=== PATIENT | male | born 1980 | race Caucasian/White ===

== ENCOUNTER 2020-12-01 02:25 | Inpatient (IN) | payer BC ==
[~2020-12-01] VITALS: Ht 177.8 cm; Wt 91.0 kg
--- NOTE | 2020-12-01 02:25 | NUR ---
INITIAL PT CONTACT. PT PRESENTS TO ED A TRANSFER FROM [facility] IN [facility] FOR LOWER BACK PAIN/POST OP COMPLICATION, PT RECENTLY HAD A LAMINECTOMY ON 11/14. PT STATES HE HAS BEEN EXPERIENCING INCREASED PAIN AND DRAINAGE FROM INCISION SITE. "THE SITE FEELS LIKE A SOFTBALL, AND IT'S WARM AND HURTS". PT WAS GIVEN 12.5 PHENERGAN, 4MG DILAUDID, 2G VANCO, 2G ROCEPHIN, 200FENTANYL, 4MG ZOFRAN, 2L NS. PT TRANSFERED FROM EMS [facility] TO ED [facility], TOLERATED WELL. PLACED ON CONTINUOUS MONITORING IN PLACE. PT REQUESTING ADDITIONAL PAIN MEDS AT THIS TIME. ERP AT BEDSIDE.
--- NOTE | 2020-12-01 02:38 | NUR ---
PT AMBULATORY WITH STEADY GAIT WITH USE OF CANE TO BATHROOM. PT REFUSES USE OF WHEELCHAIR AT THIS TIME. PT RETURNED TO ROOM. NEW OPTIFOAM DRESSING PLACED ON WOUND. PT DENIES ANY ADDITIONAL NEEDS AT THIS TIME. CALL LIGHT AND BELONGINGS WITHIN REACH.
[2020-12-01] MEDS ORDERED: ONDANSETRON 2MG/ML, 2ML ONE (02:48)
[2020-12-01] MEDS ORDERED: HYDROmorphone 1 MG/ML, 1ML INJ ONE (02:48)
[2020-12-01] MEDS ORDERED: PLEASE ENTER ALLERGIES MC SCH (03:00)
[2020-12-01] MEDS ORDERED: SODIUM CHLORIDE FLUSH 10ML SYR IVF ONE (03:00)
[2020-12-01] MEDS ORDERED: SODIUM CHLORIDE 0.9% 1,000 ML IV ONE (03:00)
[2020-12-01] MEDS ORDERED: ONDANSETRON 2MG/ML, 2ML IVPush ONE (03:00)
[2020-12-01] MEDS ORDERED: MORPHINE SULFATE 4 MG/ML, 1ML IVPush PRN (03:00)
[2020-12-01] MEDS ORDERED: HYDROmorphone 1 MG/ML, 1ML INJ IV ONE (03:00)
[2020-12-01] MEDS ORDERED: NALOXONE 0.4 MG/ML, 1ML ONE (03:19)
[2020-12-01] MEDS ORDERED: NALOXONE 0.4 MG/ML, 1ML IVPush PRN (03:30)
--- NOTE | 2020-12-01 03:45 | NUR ---
Pt o2 down to 2L NC, pt remains NPO.
--- NOTE | 2020-12-01 03:56 | NUR ---
Pt to be admitted to MEDICAL/SURGICAL, room 336. Report called to MEGHAN.
[2020-12-01] MEDS ORDERED: CELE200C PO (03:59)
[2020-12-01] MEDS ORDERED: METH750T87 PO (03:59)
[2020-12-01] MEDS ORDERED: METH10TA2 PO (03:59)
[2020-12-01] MEDS ORDERED: OXYC10TA6 PO (03:59)
[2020-12-01] MEDS ORDERED: LACTATED RINGERS 1,000 ML IV SCH (04:30)
[2020-12-01] MEDS: morphine SULFATE 10 MG/ML, 1ML IVPush PRN ×5 (04:59→20:25)
[2020-12-01 06:47] LABS: BASOPHILS % (AUTO) 1 % (0-1); EOSINOPHILS % (AUTO) 1 % (1-7); LYMPHOCYTES % (AUTO) 11 % (22-44); MEAN CORPUSCULAR HEMOGLOBIN 30.2 pg (27.5-34.5); MEAN CORPUSCULAR HGB CONC 33.6 g/dL (33.2-36.2); MEAN PLATELET VOLUME 7.8 fL (7.4-10.4); MONOCYTES % (AUTO) 9 % (2-9); NEUTROPHILS % (AUTO) 78 % (42-75); PLATELET COUNT 386 x10^3/uL (130-400); RED BLOOD COUNT 4.46 x10^6/uL (4.38-5.82); RED CELL DISTRIBUTION WIDTH 14.6 % (9.4-14.8)
[2020-12-01 06:54] LABS: ALANINE AMINOTRANSFERASE 27 U/L (12-78); ALBUMIN 3.4 g/dL (3.4-5.0); ANION GAP 7 mmol/L (5-15); CALCIUM 8.8 mg/dL (8.5-10.1); CHLORIDE 109 mmol/L (98-107); CREATININE 0.88 mg/dL (0.7-1.3)
[2020-12-01 06:56] LABS: ALKALINE PHOSPHATASE 76 U/L (45-117); BILIRUBIN,TOTAL 0.6 mg/dL (0.2-1.0); TOTAL PROTEIN 7.4 g/dL (6.4-8.2)
[2020-12-01] MEDS ORDERED: PHARMACOKINETIC CONSULTATION MC ONE (07:00)
[2020-12-01] MEDS ORDERED: VANCOMYCIN PER PHARMACY MC PRN (07:00)
[2020-12-01] MEDS ORDERED: PHARMACOKINETIC MONITORING MC PRN (07:00)
[2020-12-01 07:01] VITALS: BP 144/79
[2020-12-01 07:05] LABS: HCT (SEDRATE) 40.1 % (39.2-51.8)
[2020-12-01 07:15] LABS: MD SCAN
[2020-12-01] MEDS ORDERED: VANCOMYCIN 2,000 MG in SODIUM CHLORIDE 0.9% 500 ML IV ONE (07:30)
[2020-12-01 07:40] LABS: C-REACTIVE PROTEIN, QUANT > 19.00 mg/dL (0.02-0.49)
[2020-12-01] MEDS: PIPERACILLIN/TAZO/PMX 3.375GM 50 ML IV SCH ×2 (07:56→14:04)
[2020-12-01] MEDS ORDERED: METHOCARBAMOL 750 MG TABLET PO SCH (09:00)
[2020-12-01] MEDS ORDERED: METHADONE 10 MG TABLET PO SCH (09:00)
[2020-12-01] MEDS ORDERED: KETOROLAC 30 MG/1 ML IVPush ONE (11:00)
[2020-12-01] MEDS ORDERED: GADOTERATE 10 MMOL/20ML SYR ONE (13:38)
[2020-12-01] MEDS: ACETAMINOPHEN 325 MG TABLET PO PRN (14:13)
[2020-12-01 14:18] VITALS: BP 119/74
[2020-12-01] MEDS: VANCOMYCIN 1,700 MG in SODIUM CHLORIDE 0.9% 250 ML IV SCH (15:45)
[2020-12-01] MEDS: CEFEPIME 2 GM in DEXTROSE 5% 100 ML IV SCH (18:00)
[2020-12-01 18:32] VITALS: BP 106/69
[2020-12-01] MEDS: METHADONE 10 MG TABLET PO SCH (20:23)
[2020-12-01] MEDS ORDERED: NICOTINE 14MG/24 HR PATCH.TD24 TD SCH (21:00)
[2020-12-01] MEDS: METHOCARBAMOL 750 MG TABLET PO PRN (21:37)
[2020-12-01] MEDS: NICOTINE 14MG/24 HR PATCH.TD24 TD SCH (21:37)
[2020-12-02 00:23] VITALS: BP 137/81
[2020-12-02] MEDS: VANCOMYCIN 1,700 MG in SODIUM CHLORIDE 0.9% 250 ML IV SCH ×2 (00:52→09:24)
[2020-12-02] MEDS: morphine SULFATE 10 MG/ML, 1ML IVPush PRN ×7 (00:53→23:01)
[2020-12-02] MEDS: ACETAMINOPHEN 325 MG TABLET PO PRN (01:30)
[2020-12-02] MEDS ORDERED: KETOROLAC 30 MG/1 ML IVPush ONE (02:00)
[2020-12-02] MEDS: CEFEPIME 2 GM in DEXTROSE 5% 100 ML IV SCH ×3 (03:31→19:59)
[2020-12-02 07:09] VITALS: BP 154/92
[2020-12-02] MEDS: METHADONE 10 MG TABLET PO SCH ×3 (08:23→20:00)
[2020-12-02] MEDS: METHOCARBAMOL 750 MG TABLET PO PRN ×2 (09:33→19:59)
[2020-12-02] MEDS ORDERED: ONDANSETRON 2MG/ML, 2ML IVPush PRN (10:30)
[2020-12-02] MEDS ORDERED: KETOROLAC 30 MG/1 ML IVPush PRN (10:30)
[2020-12-02] MEDS: ONDANSETRON ODT 4 MG PO PRN (11:00)
[2020-12-02 11:27] LABS: ANION GAP 9 mmol/L (5-15); CALCIUM 8.7 mg/dL (8.5-10.1); CHLORIDE 108 mmol/L (98-107)
[2020-12-02 11:30] LABS: BASOPHILS % (AUTO) 1 % (0-1); EOSINOPHILS % (AUTO) 1 % (1-7); LYMPHOCYTES % (AUTO) 16 % (22-44); MEAN CORPUSCULAR HEMOGLOBIN 29.8 pg (27.5-34.5); MEAN CORPUSCULAR HGB CONC 32.6 g/dL (33.2-36.2); MEAN PLATELET VOLUME 7.8 fL (7.4-10.4); MONOCYTES % (AUTO) 9 % (2-9); NEUTROPHILS % (AUTO) 73 % (42-75); PLATELET COUNT 351 x10^3/uL (130-400); RED BLOOD COUNT 4.22 x10^6/uL (4.38-5.82); RED CELL DISTRIBUTION WIDTH 14.6 % (9.4-14.8)
[2020-12-02 12:08] LABS: MD SCAN
[2020-12-02 12:12] VITALS: BP 131/70
[2020-12-02] MEDS: LACTOBACILLUS CHEW TABLET PO SCH ×2 (16:31→20:00)
[2020-12-02 18:51] VITALS: BP 148/84
[2020-12-02] MEDS: VANCOMYCIN 2,000 MG in SODIUM CHLORIDE 0.9% 500 ML IV SCH (22:34)
[2020-12-02] MEDS: NICOTINE 14MG/24 HR PATCH.TD24 TD SCH (22:57)
[2020-12-03 00:14] VITALS: BP 134/80
[2020-12-03] MEDS: morphine SULFATE 10 MG/ML, 1ML IVPush PRN ×3 (02:02→08:46)
[2020-12-03] MEDS: CEFEPIME 2 GM in DEXTROSE 5% 100 ML IV SCH ×3 (04:17→21:52)
[2020-12-03 05:52] LABS: BASOPHILS % (AUTO) 1 % (0-1); EOSINOPHILS % (AUTO) 4 % (1-7); LYMPHOCYTES % (AUTO) 19 % (22-44); MEAN CORPUSCULAR HEMOGLOBIN 30.3 pg (27.5-34.5); MEAN CORPUSCULAR HGB CONC 33.7 g/dL (33.2-36.2); MEAN PLATELET VOLUME 7.6 fL (7.4-10.4); MONOCYTES % (AUTO) 10 % (2-9); NEUTROPHILS % (AUTO) 66 % (42-75); PLATELET COUNT 403 x10^3/uL (130-400); RED BLOOD COUNT 4.11 x10^6/uL (4.38-5.82); RED CELL DISTRIBUTION WIDTH 13.9 % (9.4-14.8)
[2020-12-03 05:53] LABS: MD NO
[2020-12-03 06:03] LABS: ALANINE AMINOTRANSFERASE 33 U/L (12-78); ANION GAP 5 mmol/L (5-15); CALCIUM 8.8 mg/dL (8.5-10.1); CHLORIDE 108 mmol/L (98-107)
[2020-12-03 06:05] LABS: ALKALINE PHOSPHATASE 71 U/L (45-117); BILIRUBIN,TOTAL 0.5 mg/dL (0.2-1.0); CREATININE 0.64 mg/dL (0.7-1.3); TOTAL PROTEIN 6.6 g/dL (6.4-8.2)
[2020-12-03] MEDS ORDERED: EPINEPHRINE 1 MG/ML, 1ML ONE (06:35)
[2020-12-03] MEDS ORDERED: BUPIVACAINE/PF 0.5% ONE (06:35)
[2020-12-03] MEDS ORDERED: VANCOMYCIN 1,000 MG ONE (06:35)
[2020-12-03] MEDS ORDERED: BACITRACIN 50,000 UNIT ONE (06:36)
[2020-12-03] MEDS ORDERED: POTASSIUM CHLORIDE 20 MEQ TAB.ER.PRT PO ONE (07:00)
[2020-12-03 07:06] VITALS: BP 157/88
[2020-12-03] MEDS: METHADONE 10 MG TABLET PO SCH ×2 (08:47→21:51)
[2020-12-03] MEDS: LACTOBACILLUS CHEW TABLET PO SCH ×3 (08:47→21:51)
[2020-12-03] MEDS: ONDANSETRON ODT 4 MG PO PRN (08:47)
[2020-12-03] MEDS: VANCOMYCIN 2,000 MG in SODIUM CHLORIDE 0.9% 500 ML IV SCH (09:31)
[2020-12-03] MEDS ORDERED: HYDROmorphone 1 MG/ML, 1ML INJ IM PRN (10:00)
[2020-12-03] MEDS ORDERED: POTASSIUM CHLORIDE IV SCH (10:00)
[2020-12-03] MEDS ORDERED: SODIUM CHLORIDE 0.45% IV SCH (10:00)
[2020-12-03] MEDS: HYDROmorphone 1 MG/ML, 1ML INJ IVPush PRN ×2 (11:05→16:08)
[2020-12-03 12:25] VITALS: BP 172/99
[2020-12-03] MEDS ORDERED: HYDROmorphone 1 MG/ML, 1ML INJ IVPush PRN (14:00)
[2020-12-03] MEDS ORDERED: CHLORHEXIDINE 15 ML UDC PO ONE (15:00)
[2020-12-03] MEDS ORDERED: FENTANYL PF 250 MCG/5ML ONE (15:19)
[2020-12-03] MEDS ORDERED: MIDAZOLAM 1 MG/ML, 2ML ONE (15:19)
[2020-12-03] MEDS ORDERED: LIDOCAINE-MPF 1%, 2ML ONE (15:40)
[2020-12-03] MEDS ORDERED: HYDROmorphone 1 MG/ML, 1ML INJ ONE (15:44)
[2020-12-03] MEDS ORDERED: LIDOCAINE-MPF 1%, 2ML INFIL ONE (16:00)
[2020-12-03] MEDS ORDERED: DEXAMETHASONE 4 MG/ML, 1ML ONE (16:31)
[2020-12-03] MEDS ORDERED: ONDANSETRON 2MG/ML, 2ML ONE (16:31)
[2020-12-03] MEDS ORDERED: PROPOFOL 10 MG/ML, 20ML ONE (16:31)
[2020-12-03] MEDS ORDERED: ROCURONIUM 10 MG/ML,10ML ONE (16:31)
[2020-12-03] MEDS ORDERED: CEFAZOLIN 1,000 MG ONE (16:31)
[2020-12-03] MEDS ORDERED: SUCCINYLCHOLINE 20 MG/ML, 10ML ONE (16:31)
[2020-12-03] MEDS ORDERED: SUGAMMADEX 200 MG/2 ML IVPush ONE (16:31)
[2020-12-03] MEDS ORDERED: METOCLOPRAMIDE 5 MG/ML, 2ML IV PRN (17:00)
[2020-12-03] MEDS ORDERED: PROMETHAZINE 25 MG/ML, 1ML IV PRN (17:00)
[2020-12-03] MEDS ORDERED: KETOROLAC 30 MG/1 ML IV PRN (17:00)
[2020-12-03] MEDS ORDERED: ONDANSETRON 2MG/ML, 2ML IVPush PRN ×2 (17:00→18:00)
[2020-12-03] MEDS ORDERED: DIAZEPAM 5 MG/ML, 2ML IV PRN ×2 (17:00)
[2020-12-03] MEDS ORDERED: ALBUTEROL SULFATE 2.5 MG/3 ML NPPB PRN (17:00)
[2020-12-03] MEDS ORDERED: LABETALOL 5MG/ML, 20ML IV PRN (17:00)
[2020-12-03] MEDS ORDERED: hydrALAzine 20 MG/ML, 1ML IV PRN (17:00)
[2020-12-03] MEDS ORDERED: OXYcodone 5 MG/5 ML ORAL.SOL UDC PO PRN (17:00)
[2020-12-03] MEDS ORDERED: FENTANYL PF 100 MCG/2ML ONE ×3 (17:25→17:59)
[2020-12-03] MEDS ORDERED: DIAZEPAM 5 MG/ML, 2ML ONE (17:26)
[2020-12-03] MEDS ORDERED: HYDROmorphone 2 MG/ML, 1ML ONE ×2 (17:26→17:59)
[2020-12-03] MEDS ORDERED: OXYcodone 5 MG/5 ML ORAL.SOL UDC ONE (17:26)
[2020-12-03] MEDS: FENTANYL PF 100 MCG/2ML IV PRN ×3 (17:27→17:46)
[2020-12-03] MEDS ORDERED: KETAMINE 10 MG/ML, 20ML ONE (17:28)
[2020-12-03] MEDS: HYDROmorphone 1 MG/ML, 1ML INJ IV PRN ×7 (17:30→18:10)
[2020-12-03] MEDS ORDERED: MEPERIDINE/PF 100 MG/ML ONE (17:51)
[2020-12-03] MEDS ORDERED: PROMETHAZINE 25 MG/ML, 1ML ONE (17:59)
[2020-12-03] MEDS ORDERED: SENNA/DOCUSATE TABLET PO PRN (18:00)
[2020-12-03] MEDS ORDERED: BISACODYL 10 MG SUPP PR PRN (18:00)
[2020-12-03] MEDS ORDERED: PHARMACY MAY ADJ FOR RENAL FX MC PRN (18:00)
[2020-12-03] MEDS ORDERED: MAGNESIUM HYDROXIDE 8%, 30ML UDC PO PRN (18:00)
[2020-12-03] MEDS ORDERED: DIPHENHYDRAMINE 50 MG/ML, 1ML IVPush PRN (18:00)
[2020-12-03] MEDS ORDERED: DIPHENHYDRAMINE 50 MG CAPSULE PO PRN (18:00)
[2020-12-03] MEDS: CEFAZOLIN PMX 1GM/50ML 50 ML IVPB SCH (18:00)
[2020-12-03] MEDS ORDERED: LABETALOL 5MG/ML 40ML VIAL IVPush SCH (18:00)
[2020-12-03] MEDS ORDERED: DIPHENHYDRAMINE 50 MG/ML, 1ML IM PRN (18:00)
[2020-12-03] MEDS ORDERED: METHOCARBAMOL 1,000 MG in DEXTROSE 5% 100 ML IV ONE (18:00)
[2020-12-03] MEDS: MEPERIDINE/PF 25MG/0.5ML IVPush PRN ×2 (18:07→18:22)
[2020-12-03] MEDS: HYDROmorphone PCA 30 MG/30 ML IV PRN (18:39)
[2020-12-03] MEDS ORDERED: DIAZEPAM 5 MG/ML, 2ML IV ONE (19:00)
[2020-12-03 19:52] VITALS: BP 144/86
[2020-12-03] MEDS: KETOROLAC 30 MG/1 ML IVPush SCH (20:05)
[2020-12-03] MEDS: LABETALOL 5MG/ML, 20ML IVPush SCH (20:15)
[2020-12-03] MEDS: NS + 20MEQ KCL 1,000 ML IV SCH (20:19)
[2020-12-03] MEDS: SODIUM CHLORIDE FLUSH 10ML SYR IVF SCH (21:51)
[2020-12-03] MEDS: NICOTINE 14MG/24 HR PATCH.TD24 TD SCH (21:51)
[2020-12-04] MEDS: VANCOMYCIN 2,000 MG in SODIUM CHLORIDE 0.9% 500 ML IV SCH ×2 (00:25→13:01)
[2020-12-04 00:39] VITALS: BP 160/93
[2020-12-04] MEDS ORDERED: METHOCARBAMOL 750 MG in DEXTROSE 5% 100 ML IV PRN (02:00)
[2020-12-04] MEDS: CEFAZOLIN PMX 1GM/50ML 50 ML IVPB SCH (03:04)
[2020-12-04] MEDS: KETOROLAC 30 MG/1 ML IVPush SCH ×3 (03:04→17:04)
[2020-12-04] MEDS: METHOCARBAMOL 750 MG TABLET PO PRN ×4 (03:05→23:25)
[2020-12-04] MEDS: HYDROmorphone PCA 30 MG/30 ML IV PRN (03:15)
[2020-12-04 03:40] VITALS: BP 114/65
[2020-12-04] MEDS: LABETALOL 5MG/ML, 20ML IVPush SCH (04:09)
[2020-12-04 05:19] LABS: BASOPHILS % (AUTO) 1 % (0-1); EOSINOPHILS % (AUTO) 3 % (1-7); LYMPHOCYTES % (AUTO) 18 % (22-44); MEAN CORPUSCULAR HEMOGLOBIN 29.7 pg (27.5-34.5); MEAN CORPUSCULAR HGB CONC 32.8 g/dL (33.2-36.2); MEAN PLATELET VOLUME 7.7 fL (7.4-10.4); MONOCYTES % (AUTO) 7 % (2-9); NEUTROPHILS % (AUTO) 72 % (42-75); PLATELET COUNT 402 x10^3/uL (130-400); RED BLOOD COUNT 3.95 x10^6/uL (4.38-5.82); RED CELL DISTRIBUTION WIDTH 14.2 % (9.4-14.8)
[2020-12-04 05:26] LABS: ALBUMIN 2.6 g/dL (3.4-5.0); CALCIUM 8.5 mg/dL (8.5-10.1); CREATININE 0.61 mg/dL (0.7-1.3)
[2020-12-04 05:48] LABS: ANION GAP 9 mmol/L (5-15); CHLORIDE 109 mmol/L (98-107)
[2020-12-04 06:00] LABS: MD SCAN
[2020-12-04] MEDS: CEFEPIME 2 GM in DEXTROSE 5% 100 ML IV SCH ×2 (06:23→15:46)
[2020-12-04] MEDS: NS + 20MEQ KCL 1,000 ML IV SCH (06:30)
[2020-12-04] MEDS: ENOXAPARIN 40 MG/0.4 ML SQ SCH (06:31)
[2020-12-04 07:05] VITALS: BP 146/97
[2020-12-04] MEDS: METHADONE 10 MG TABLET PO SCH ×2 (08:32→22:04)
[2020-12-04] MEDS: LACTOBACILLUS CHEW TABLET PO SCH ×3 (08:32→22:03)
[2020-12-04] MEDS: SODIUM CHLORIDE FLUSH 10ML SYR IVF SCH ×2 (08:32→22:05)
[2020-12-04] MEDS: HYDROmorphone 2MG TABLET PO PRN ×5 (11:18→23:25)
[2020-12-04] MEDS ORDERED: POTASSIUM CHLORIDE 20 MEQ TAB.ER.PRT PO ONE (13:00)
[2020-12-04] MEDS: ACETAMINOPHEN 325 MG TABLET PO PRN ×2 (14:10→20:21)
[2020-12-04 14:30] VITALS: BP 155/90
[2020-12-04] MEDS: HYDROmorphone 1 MG/ML, 1ML INJ IVPush PRN (15:46)
[2020-12-04 19:18] VITALS: BP 159/91
[2020-12-04] MEDS: NAFCILLIN 2 GM in DEXTROSE 5% 100 ML IV SCH ×2 (19:53→23:25)
[2020-12-04] MEDS: NICOTINE 14MG/24 HR PATCH.TD24 TD SCH (22:04)
[2020-12-05 01:43] VITALS: BP 157/95
[2020-12-05] MEDS: KETOROLAC 30 MG/1 ML IVPush SCH ×3 (02:06→17:28)
[2020-12-05] MEDS: HYDROmorphone 2MG TABLET PO PRN ×2 (02:28→05:51)
[2020-12-05] MEDS: NAFCILLIN 2 GM in DEXTROSE 5% 100 ML IV SCH ×5 (03:44→20:09)
[2020-12-05 05:39] LABS: BASOPHILS % (AUTO) 1 % (0-1); EOSINOPHILS % (AUTO) 6 % (1-7); LYMPHOCYTES % (AUTO) 22 % (22-44); MEAN CORPUSCULAR HEMOGLOBIN 30.2 pg (27.5-34.5); MEAN CORPUSCULAR HGB CONC 33.2 g/dL (33.2-36.2); MEAN PLATELET VOLUME 7.3 fL (7.4-10.4); MONOCYTES % (AUTO) 10 % (2-9); NEUTROPHILS % (AUTO) 62 % (42-75); PLATELET COUNT 468 x10^3/uL (130-400); RED BLOOD COUNT 4.44 x10^6/uL (4.38-5.82); RED CELL DISTRIBUTION WIDTH 14.2 % (9.4-14.8)
[2020-12-05 05:46] LABS: MD NO
[2020-12-05 05:48] LABS: ALBUMIN 3.3 g/dL (3.4-5.0); ANION GAP 4 mmol/L (5-15); CALCIUM 8.9 mg/dL (8.5-10.1); CHLORIDE 105 mmol/L (98-107)
[2020-12-05 05:51] LABS: ALANINE AMINOTRANSFERASE 33 U/L (12-78); ALKALINE PHOSPHATASE 73 U/L (45-117); BILIRUBIN,TOTAL 0.9 mg/dL (0.2-1.0); CREATININE 0.78 mg/dL (0.7-1.3); TOTAL PROTEIN 7.1 g/dL (6.4-8.2)
[2020-12-05] MEDS: ENOXAPARIN 40 MG/0.4 ML SQ SCH (05:52)
[2020-12-05] MEDS: METHOCARBAMOL 750 MG TABLET PO PRN ×3 (05:56→17:27)
[2020-12-05 07:00] VITALS: BP 152/90
[2020-12-05] MEDS: LACTOBACILLUS CHEW TABLET PO SCH ×3 (08:09→21:00)
[2020-12-05] MEDS: METHADONE 10 MG TABLET PO SCH ×2 (08:13→21:00)
[2020-12-05] MEDS: SODIUM CHLORIDE FLUSH 10ML SYR IVF SCH ×2 (08:16→20:17)
[2020-12-05] MEDS: DAPTOMYCIN 700 MG in SODIUM CHLORIDE 0.9% 100 ML IV SCH (09:41)
[2020-12-05] MEDS: OXYcodone IR 5MG TABLET PO PRN ×3 (09:41→17:27)
[2020-12-05] MEDS: LORazepam 1MG TABLET PO PRN ×2 (12:04→20:09)
[2020-12-05] MEDS ORDERED: NICOTINE GUM 2 MG BC PRN (12:30)
[2020-12-05] MEDS: NICOTINE GUM 4 MG BC PRN ×3 (12:59→19:41)
[2020-12-05] MEDS: ACETAMINOPHEN 325 MG TABLET PO PRN (13:28)
[2020-12-05 13:42] VITALS: BP 146/96
[2020-12-05 20:36] VITALS: BP 130/83
[2020-12-06] MEDS: NAFCILLIN 2 GM in DEXTROSE 5% 100 ML IV SCH ×3 (00:02→08:30)
[2020-12-06] MEDS: OXYcodone IR 5MG TABLET PO PRN ×6 (00:19→21:10)
[2020-12-06 03:05] VITALS: BP 157/86
[2020-12-06] MEDS: KETOROLAC 30 MG/1 ML IVPush SCH ×3 (03:37→17:00)
[2020-12-06] MEDS: ENOXAPARIN 40 MG/0.4 ML SQ SCH (06:11)
[2020-12-06 06:26] LABS: BASOPHILS % (AUTO) 1 % (0-1); EOSINOPHILS % (AUTO) 3 % (1-7); LYMPHOCYTES % (AUTO) 14 % (22-44); MEAN CORPUSCULAR HEMOGLOBIN 30.2 pg (27.5-34.5); MEAN CORPUSCULAR HGB CONC 33.2 g/dL (33.2-36.2); MEAN PLATELET VOLUME 7.2 fL (7.4-10.4); MONOCYTES % (AUTO) 8 % (2-9); NEUTROPHILS % (AUTO) 74 % (42-75); PLATELET COUNT 541 x10^3/uL (130-400); RED BLOOD COUNT 4.74 x10^6/uL (4.38-5.82); RED CELL DISTRIBUTION WIDTH 14.2 % (9.4-14.8)
[2020-12-06 06:28] LABS: MD NO
[2020-12-06] MEDS: METHOCARBAMOL 750 MG TABLET PO PRN ×3 (08:30→21:27)
[2020-12-06] MEDS: LACTOBACILLUS CHEW TABLET PO SCH ×3 (08:30→21:11)
[2020-12-06] MEDS: METHADONE 10 MG TABLET PO SCH ×2 (08:31→21:11)
[2020-12-06] MEDS: SODIUM CHLORIDE FLUSH 10ML SYR IVF SCH ×2 (08:36→21:15)
[2020-12-06] MEDS: DAPTOMYCIN 700 MG in SODIUM CHLORIDE 0.9% 100 ML IV SCH (10:00)
[2020-12-06] MEDS: HYDROmorphone 1 MG/ML, 1ML INJ IVPush PRN ×2 (10:00→15:05)
[2020-12-06 10:50] VITALS: BP 135/84
[2020-12-06] MEDS ORDERED: POTASSIUM CHLORIDE 20 MEQ TAB.ER.PRT PO ONE (13:30)
[2020-12-06 15:28] VITALS: BP 157/105
[2020-12-06 19:43] VITALS: BP 107/69
[2020-12-06] MEDS: NICOTINE 14MG/24 HR PATCH.TD24 TD SCH ×2 (21:11)
[2020-12-07 00:09] VITALS: BP 157/107
[2020-12-07] MEDS: HYDROmorphone 1 MG/ML, 1ML INJ IVPush PRN ×4 (00:21→21:53)
[2020-12-07 01:15] VITALS: BP 146/91
[2020-12-07] MEDS: KETOROLAC 30 MG/1 ML IVPush SCH ×3 (02:24→17:52)
[2020-12-07] MEDS: OXYcodone IR 5MG TABLET PO PRN ×5 (03:06→19:50)
[2020-12-07] MEDS: ENOXAPARIN 40 MG/0.4 ML SQ SCH (05:59)
[2020-12-07 06:13] LABS: BASOPHILS % (AUTO) 0 % (0-1); EOSINOPHILS % (AUTO) 5 % (1-7); LYMPHOCYTES % (AUTO) 24 % (22-44); MD NO; MEAN CORPUSCULAR HEMOGLOBIN 30.3 pg (27.5-34.5); MEAN CORPUSCULAR HGB CONC 33.7 g/dL (33.2-36.2); MONOCYTES % (AUTO) 9 % (2-9); NEUTROPHILS % (AUTO) 62 % (42-75); PLATELET COUNT 550 x10^3/uL (130-400); RED CELL DISTRIBUTION WIDTH 14.2 % (9.4-14.8)
[2020-12-07 06:26] LABS: ALANINE AMINOTRANSFERASE 35 U/L (12-78); ALBUMIN 3.3 g/dL (3.4-5.0); ANION GAP 6 mmol/L (5-15); CALCIUM 9.1 mg/dL (8.5-10.1); CHLORIDE 106 mmol/L (98-107); CREATININE 0.79 mg/dL (0.7-1.3)
[2020-12-07 06:28] LABS: ALKALINE PHOSPHATASE 74 U/L (45-117); BILIRUBIN,TOTAL 0.3 mg/dL (0.2-1.0); TOTAL PROTEIN 7.1 g/dL (6.4-8.2)
[2020-12-07 07:09] VITALS: BP 153/104
[2020-12-07] MEDS: METHOCARBAMOL 750 MG TABLET PO PRN ×3 (07:20→19:50)
[2020-12-07] MEDS ORDERED: GADOTERATE 10 MMOL/20ML SYR ONE (08:28)
[2020-12-07] MEDS: LACTOBACILLUS CHEW TABLET PO SCH ×3 (08:58→21:38)
[2020-12-07] MEDS: SODIUM CHLORIDE FLUSH 10ML SYR IVF SCH ×2 (08:58→21:39)
[2020-12-07] MEDS: ERTAPENEM 1 GM in SODIUM CHLORIDE 0.9% 50 ML IV SCH (08:58)
[2020-12-07] MEDS: METHADONE 10 MG TABLET PO SCH ×2 (08:59→21:38)
[2020-12-07 13:27] VITALS: BP 136/84
[2020-12-07 19:40] VITALS: BP 154/95
[2020-12-07] MEDS: LORazepam 1MG TABLET PO PRN (21:38)
[2020-12-07] MEDS: NICOTINE 14MG/24 HR PATCH.TD24 TD SCH (21:38)
[2020-12-08] MEDS: KETOROLAC 30 MG/1 ML IVPush SCH (01:58)
[2020-12-08 02:44] VITALS: BP 136/94
[2020-12-08] MEDS: OXYcodone IR 5MG TABLET PO PRN ×5 (02:54→22:29)
[2020-12-08] MEDS: METHOCARBAMOL 750 MG TABLET PO PRN ×3 (05:49→18:24)
[2020-12-08] MEDS: ENOXAPARIN 40 MG/0.4 ML SQ SCH (05:50)
[2020-12-08 06:03] LABS: BASOPHILS % (AUTO) 0 % (0-1); EOSINOPHILS % (AUTO) 5 % (1-7); LYMPHOCYTES % (AUTO) 25 % (22-44); MEAN CORPUSCULAR HEMOGLOBIN 29.9 pg (27.5-34.5); MEAN CORPUSCULAR HGB CONC 33.1 g/dL (33.2-36.2); MEAN PLATELET VOLUME 6.8 fL (7.4-10.4); MONOCYTES % (AUTO) 10 % (2-9); NEUTROPHILS % (AUTO) 60 % (42-75); PLATELET COUNT 530 x10^3/uL (130-400); RED BLOOD COUNT 4.85 x10^6/uL (4.38-5.82); RED CELL DISTRIBUTION WIDTH 14.5 % (9.4-14.8)
[2020-12-08 06:05] LABS: MD NO
[2020-12-08] MEDS: HYDROmorphone 1 MG/ML, 1ML INJ IVPush PRN ×4 (06:05→20:39)
[2020-12-08 06:15] LABS: ANION GAP 4 mmol/L (5-15); CALCIUM 8.7 mg/dL (8.5-10.1); CHLORIDE 107 mmol/L (98-107)
[2020-12-08 06:16] LABS: CREATININE 0.78 mg/dL (0.7-1.3)
[2020-12-08 07:46] VITALS: BP 130/81
[2020-12-08] MEDS: METHADONE 10 MG TABLET PO SCH ×2 (09:44→21:22)
[2020-12-08] MEDS: LACTOBACILLUS CHEW TABLET PO SCH ×3 (09:44→21:22)
[2020-12-08] MEDS: ERTAPENEM 1 GM in SODIUM CHLORIDE 0.9% 50 ML IV SCH (09:45)
[2020-12-08] MEDS: SODIUM CHLORIDE FLUSH 10ML SYR IVF SCH ×2 (09:47→21:23)
[2020-12-08 13:40] VITALS: BP 117/74
[2020-12-08] MEDS: ACETAMINOPHEN 325 MG TABLET PO PRN (13:46)
[2020-12-08 18:59] VITALS: BP 147/95
[2020-12-08] MEDS: NICOTINE 14MG/24 HR PATCH.TD24 TD SCH (21:22)
[2020-12-09] MEDS: METHOCARBAMOL 750 MG TABLET PO PRN ×4 (00:39→23:22)
[2020-12-09] MEDS: HYDROmorphone 1 MG/ML, 1ML INJ IVPush PRN ×6 (00:39→20:25)
[2020-12-09 01:10] VITALS: BP 145/86
[2020-12-09] MEDS: OXYcodone IR 5MG TABLET PO PRN ×6 (02:42→23:23)
[2020-12-09] MEDS: ENOXAPARIN 40 MG/0.4 ML SQ SCH (05:48)
[2020-12-09 06:00] LABS: BASOPHILS % (AUTO) 1 % (0-1); EOSINOPHILS % (AUTO) 6 % (1-7); LYMPHOCYTES % (AUTO) 25 % (22-44); MEAN CORPUSCULAR HEMOGLOBIN 30.3 pg (27.5-34.5); MEAN CORPUSCULAR HGB CONC 33.4 g/dL (33.2-36.2); MONOCYTES % (AUTO) 10 % (2-9); NEUTROPHILS % (AUTO) 59 % (42-75); PLATELET COUNT 562 x10^3/uL (130-400); RED BLOOD COUNT 4.62 x10^6/uL (4.38-5.82); RED CELL DISTRIBUTION WIDTH 14.5 % (9.4-14.8)
[2020-12-09 06:06] LABS: CALCIUM 8.7 mg/dL (8.5-10.1); CHLORIDE 109 mmol/L (98-107)
[2020-12-09 06:09] LABS: MD NO
[2020-12-09 06:17] LABS: ALANINE AMINOTRANSFERASE 53 U/L (12-78); ALBUMIN 3.2 g/dL (3.4-5.0); ALKALINE PHOSPHATASE 70 U/L (45-117); ANION GAP 6 mmol/L (5-15); BILIRUBIN,TOTAL 0.5 mg/dL (0.2-1.0); CREATININE 0.81 mg/dL (0.7-1.3); TOTAL PROTEIN 6.9 g/dL (6.4-8.2)
[2020-12-09 07:56] VITALS: BP 129/79
[2020-12-09] MEDS: SODIUM CHLORIDE FLUSH 10ML SYR IVF SCH ×2 (08:29→20:26)
[2020-12-09] MEDS: BUTALB/APAP/CAFFEINE 50MG/325MG/40MG PO PRN ×2 (08:30→17:16)
[2020-12-09] MEDS: LACTOBACILLUS CHEW TABLET PO SCH ×3 (08:30→20:25)
[2020-12-09] MEDS: METHADONE 10 MG TABLET PO SCH ×2 (08:30→20:25)
[2020-12-09] MEDS: NAFCILLIN 2 GM in DEXTROSE 5% 100 ML IV SCH ×4 (09:01→20:24)
[2020-12-09 14:22] VITALS: BP 154/94
[2020-12-09 19:14] VITALS: BP 129/79
[2020-12-09] MEDS: NICOTINE 14MG/24 HR PATCH.TD24 TD SCH (20:26)
[2020-12-10] MEDS: NAFCILLIN 2 GM in DEXTROSE 5% 100 ML IV SCH ×6 (00:59→21:16)
[2020-12-10] MEDS: HYDROmorphone 1 MG/ML, 1ML INJ IVPush PRN ×6 (01:02→21:16)
[2020-12-10 01:03] VITALS: BP 134/80
[2020-12-10] MEDS: METHOCARBAMOL 750 MG TABLET PO PRN ×4 (04:53→23:31)
[2020-12-10] MEDS: BUTALB/APAP/CAFFEINE 50MG/325MG/40MG PO PRN ×2 (05:01→16:29)
[2020-12-10] MEDS: ENOXAPARIN 40 MG/0.4 ML SQ SCH ×2 (05:02→19:57)
[2020-12-10 05:16] LABS: BASOPHILS % (AUTO) 1 % (0-1); EOSINOPHILS % (AUTO) 7 % (1-7); LYMPHOCYTES % (AUTO) 24 % (22-44); MEAN CORPUSCULAR HEMOGLOBIN 30.2 pg (27.5-34.5); MEAN CORPUSCULAR HGB CONC 33.3 g/dL (33.2-36.2); MEAN PLATELET VOLUME 6.8 fL (7.4-10.4); MONOCYTES % (AUTO) 11 % (2-9); NEUTROPHILS % (AUTO) 58 % (42-75); PLATELET COUNT 545 x10^3/uL (130-400); RED BLOOD COUNT 4.86 x10^6/uL (4.38-5.82); RED CELL DISTRIBUTION WIDTH 14.5 % (9.4-14.8)
[2020-12-10 05:19] LABS: MD NO
[2020-12-10] MEDS: OXYcodone IR 5MG TABLET PO PRN ×5 (06:45→23:31)
[2020-12-10 08:22] VITALS: BP 148/96
[2020-12-10] MEDS: LACTOBACILLUS CHEW TABLET PO SCH ×3 (09:26→21:16)
[2020-12-10] MEDS: METHADONE 10 MG TABLET PO SCH ×2 (09:26→21:16)
[2020-12-10] MEDS: SODIUM CHLORIDE FLUSH 10ML SYR IVF SCH ×2 (09:27→21:00)
[2020-12-10 13:44] VITALS: BP 142/94
[2020-12-10] MEDS: NICOTINE GUM 4 MG BC PRN (15:06)
[2020-12-10 15:58] LABS: INTERNATIONAL NORMALIZED RATIO 1.05 (0.93-1.1); PROTHROMBIN TIME 11.2 Seconds (9.6-11.5)
[2020-12-10 19:33] VITALS: BP 134/86
[2020-12-10] MEDS: NICOTINE 14MG/24 HR PATCH.TD24 TD SCH (21:16)
[2020-12-11] VITALS (16 sets, daily range): BP systolic 132–164; BP diastolic 82–111
[2020-12-11] MEDS: NAFCILLIN 2 GM in DEXTROSE 5% 100 ML IV SCH ×6 (01:19→20:26)
[2020-12-11] MEDS: HYDROmorphone 1 MG/ML, 1ML INJ IVPush PRN ×5 (01:19→21:27)
[2020-12-11] MEDS: METHOCARBAMOL 750 MG TABLET PO PRN ×3 (05:16→19:17)
[2020-12-11] MEDS: OXYcodone IR 5MG TABLET PO PRN ×5 (05:16→23:08)
[2020-12-11] MEDS: BUTALB/APAP/CAFFEINE 50MG/325MG/40MG PO PRN ×4 (05:32→23:08)
[2020-12-11 05:59] LABS: BASOPHILS % (AUTO) 1 % (0-1); EOSINOPHILS % (AUTO) 6 % (1-7); LYMPHOCYTES % (AUTO) 23 % (22-44); MEAN CORPUSCULAR HEMOGLOBIN 30.3 pg (27.5-34.5); MEAN CORPUSCULAR HGB CONC 33.9 g/dL (33.2-36.2); MONOCYTES % (AUTO) 10 % (2-9); NEUTROPHILS % (AUTO) 60 % (42-75); PLATELET COUNT 524 x10^3/uL (130-400); RED BLOOD COUNT 4.85 x10^6/uL (4.38-5.82)
[2020-12-11 06:32] LABS: MD SCAN
[2020-12-11] MEDS: LACTOBACILLUS CHEW TABLET PO SCH ×3 (09:00→20:27)
[2020-12-11] MEDS: SODIUM CHLORIDE FLUSH 10ML SYR IVF SCH ×2 (09:21→21:00)
[2020-12-11] MEDS: METHADONE 10 MG TABLET PO SCH ×2 (09:22→20:27)
[2020-12-11] MEDS ORDERED: NALOXONE 1 MG/ML, 2ML ONE (14:19)
[2020-12-11] MEDS ORDERED: MIDAZOLAM 1 MG/ML, 5ML ONE (14:19)
[2020-12-11] MEDS ORDERED: FLUMAZENIL 0.1 MG/1 ML, 5ML ONE (14:19)
[2020-12-11] MEDS ORDERED: FENTANYL PF 100 MCG/2ML ONE (14:19)
[2020-12-11] MEDS: LORazepam 1MG TABLET PO PRN (19:59)
[2020-12-11] MEDS: NICOTINE 14MG/24 HR PATCH.TD24 TD SCH (20:27)
[2020-12-12] VITALS (15 sets, daily range): BP systolic 115–166; BP diastolic 77–100
[2020-12-12] MEDS: NAFCILLIN 2 GM in DEXTROSE 5% 100 ML IV SCH ×6 (01:00→20:34)
[2020-12-12 03:19] LABS: BASOPHILS % (AUTO) 1 % (0-1); EOSINOPHILS % (AUTO) 5 % (1-7); LYMPHOCYTES % (AUTO) 21 % (22-44); MEAN CORPUSCULAR HEMOGLOBIN 30.3 pg (27.5-34.5); MEAN CORPUSCULAR HGB CONC 33.6 g/dL (33.2-36.2); MEAN PLATELET VOLUME 6.9 fL (7.4-10.4); MONOCYTES % (AUTO) 10 % (2-9); NEUTROPHILS % (AUTO) 63 % (42-75); PLATELET COUNT 469 x10^3/uL (130-400); RED BLOOD COUNT 4.62 x10^6/uL (4.38-5.82); RED CELL DISTRIBUTION WIDTH 14.5 % (9.4-14.8)
[2020-12-12 03:20] LABS: MD NO
[2020-12-12] MEDS: BUTALB/APAP/CAFFEINE 50MG/325MG/40MG PO PRN ×4 (03:27→19:29)
[2020-12-12 03:30] LABS: ANION GAP 4 mmol/L (5-15); CALCIUM 8.8 mg/dL (8.5-10.1); CHLORIDE 108 mmol/L (98-107); CREATININE 0.85 mg/dL (0.7-1.3)
[2020-12-12] MEDS: OXYcodone IR 5MG TABLET PO PRN ×6 (03:34→19:34)
[2020-12-12] MEDS: HYDROmorphone 1 MG/ML, 1ML INJ IVPush PRN ×4 (05:54→21:42)
[2020-12-12] MEDS: METHOCARBAMOL 750 MG TABLET PO PRN ×2 (06:00→13:55)
[2020-12-12] MEDS: METHADONE 10 MG TABLET PO SCH ×2 (08:45→20:34)
[2020-12-12] MEDS: LACTOBACILLUS CHEW TABLET PO SCH ×3 (08:45→20:34)
[2020-12-12] MEDS: SODIUM CHLORIDE FLUSH 10ML SYR IVF SCH ×2 (08:46→20:40)
[2020-12-12] MEDS: LORazepam 1MG TABLET PO PRN ×2 (11:37→21:42)
[2020-12-12] MEDS: hydrALAzine 20 MG/ML, 1ML IVPush PRN (13:56)
[2020-12-12] MEDS: NICOTINE 14MG/24 HR PATCH.TD24 TD SCH (20:34)
[2020-12-13] VITALS: BP 110/69
[2020-12-13 01:00] VITALS: BP 134/87
[2020-12-13] MEDS: NAFCILLIN 2 GM in DEXTROSE 5% 100 ML IV SCH ×6 (01:16→21:02)
[2020-12-13 02:00] VITALS: BP 133/90
[2020-12-13 03:00] VITALS: BP 148/99
[2020-12-13 03:21] LABS: BASOPHILS % (AUTO) 1 % (0-1); EOSINOPHILS % (AUTO) 5 % (1-7); LYMPHOCYTES % (AUTO) 22 % (22-44); MEAN CORPUSCULAR HEMOGLOBIN 29.9 pg (27.5-34.5); MEAN CORPUSCULAR HGB CONC 32.9 g/dL (33.2-36.2); MEAN PLATELET VOLUME 7.1 fL (7.4-10.4); MONOCYTES % (AUTO) 10 % (2-9); NEUTROPHILS % (AUTO) 63 % (42-75); PLATELET COUNT 480 x10^3/uL (130-400); RED BLOOD COUNT 4.66 x10^6/uL (4.38-5.82); RED CELL DISTRIBUTION WIDTH 14.6 % (9.4-14.8)
[2020-12-13 03:22] LABS: MD NO
[2020-12-13] MEDS: OXYcodone IR 5MG TABLET PO PRN ×5 (03:27→21:59)
[2020-12-13] MEDS: BUTALB/APAP/CAFFEINE 50MG/325MG/40MG PO PRN ×2 (03:27→13:09)
[2020-12-13 04:00] VITALS: BP 149/88
[2020-12-13] MEDS: LACTOBACILLUS CHEW TABLET PO SCH ×3 (08:35→20:57)
[2020-12-13] MEDS: SODIUM CHLORIDE FLUSH 10ML SYR IVF SCH ×2 (08:35→20:56)
[2020-12-13] MEDS: METHOCARBAMOL 750 MG TABLET PO PRN ×3 (08:35→20:57)
[2020-12-13] MEDS: METHADONE 10 MG TABLET PO SCH ×2 (08:35→20:57)
[2020-12-13] MEDS: HYDROmorphone 1 MG/ML, 1ML INJ IVPush PRN ×4 (10:14→23:58)
[2020-12-13] MEDS: NICOTINE 14MG/24 HR PATCH.TD24 TD SCH (20:58)
[2020-12-13] MEDS: LORazepam 1MG TABLET PO PRN (23:58)
[2020-12-14] MEDS: NAFCILLIN 2 GM in DEXTROSE 5% 100 ML IV SCH ×6 (00:59→20:32)
[2020-12-14] MEDS: OXYcodone IR 5MG TABLET PO PRN ×5 (02:07→18:00)
[2020-12-14] MEDS: METHOCARBAMOL 750 MG TABLET PO PRN ×2 (04:34→10:06)
[2020-12-14] MEDS: HYDROmorphone 1 MG/ML, 1ML INJ IVPush PRN ×5 (04:34→20:37)
[2020-12-14 05:08] LABS: BASOPHILS % (AUTO) 1 % (0-1); EOSINOPHILS % (AUTO) 5 % (1-7); LYMPHOCYTES % (AUTO) 23 % (22-44); MEAN CORPUSCULAR HEMOGLOBIN 30.2 pg (27.5-34.5); MEAN CORPUSCULAR HGB CONC 33.2 g/dL (33.2-36.2); MEAN PLATELET VOLUME 7.2 fL (7.4-10.4); MONOCYTES % (AUTO) 10 % (2-9); NEUTROPHILS % (AUTO) 60 % (42-75); PLATELET COUNT 460 x10^3/uL (130-400); RED BLOOD COUNT 4.58 x10^6/uL (4.38-5.82); RED CELL DISTRIBUTION WIDTH 14.9 % (9.4-14.8)
[2020-12-14 05:22] LABS: MD NO
[2020-12-14] MEDS: SODIUM CHLORIDE FLUSH 10ML SYR IVF SCH ×2 (08:58→20:31)
[2020-12-14] MEDS: METHADONE 10 MG TABLET PO SCH ×2 (08:58→21:59)
[2020-12-14] MEDS: LACTOBACILLUS CHEW TABLET PO SCH ×3 (08:58→20:32)
[2020-12-14] MEDS: BUTALB/APAP/CAFFEINE 50MG/325MG/40MG PO PRN (16:26)
[2020-12-14] MEDS: NICOTINE 14MG/24 HR PATCH.TD24 TD SCH (21:59)
[2020-12-14] MEDS: LORazepam 1MG TABLET PO PRN (21:59)
[2020-12-15] MEDS: OXYcodone IR 5MG TABLET PO PRN ×5 (00:49→19:59)
[2020-12-15] MEDS: NAFCILLIN 2 GM in DEXTROSE 5% 100 ML IV SCH ×6 (00:49→21:10)
[2020-12-15] MEDS: HYDROmorphone 1 MG/ML, 1ML INJ IVPush PRN ×5 (04:43→21:41)
[2020-12-15 04:57] LABS: BASOPHILS % (AUTO) 2 % (0-1); EOSINOPHILS % (AUTO) 5 % (1-7); LYMPHOCYTES % (AUTO) 21 % (22-44); MEAN CORPUSCULAR HEMOGLOBIN 30.2 pg (27.5-34.5); MEAN CORPUSCULAR HGB CONC 33.4 g/dL (33.2-36.2); MEAN PLATELET VOLUME 7.2 fL (7.4-10.4); MONOCYTES % (AUTO) 9 % (2-9); NEUTROPHILS % (AUTO) 63 % (42-75); PLATELET COUNT 485 x10^3/uL (130-400); RED BLOOD COUNT 4.72 x10^6/uL (4.38-5.82); RED CELL DISTRIBUTION WIDTH 14.4 % (9.4-14.8)
[2020-12-15 05:01] LABS: ALANINE AMINOTRANSFERASE 33 U/L (12-78); ALBUMIN 3.2 g/dL (3.4-5.0); ANION GAP 4 mmol/L (5-15); CALCIUM 9.1 mg/dL (8.5-10.1); CHLORIDE 109 mmol/L (98-107)
[2020-12-15 05:03] LABS: ALKALINE PHOSPHATASE 77 U/L (45-117); BILIRUBIN,TOTAL 0.5 mg/dL (0.2-1.0); CREATININE 0.82 mg/dL (0.7-1.3); MD NO; TOTAL PROTEIN 7.6 g/dL (6.4-8.2)
[2020-12-15] MEDS: METHOCARBAMOL 750 MG TABLET PO PRN ×3 (05:58→19:58)
[2020-12-15] MEDS: METHADONE 10 MG TABLET PO SCH ×2 (09:09→21:11)
[2020-12-15] MEDS: LACTOBACILLUS CHEW TABLET PO SCH ×3 (09:09→21:11)
[2020-12-15] MEDS: SODIUM CHLORIDE FLUSH 10ML SYR IVF SCH ×2 (09:11→21:11)
[2020-12-15] MEDS: NICOTINE 14MG/24 HR PATCH.TD24 TD SCH (21:11)
[2020-12-16] MEDS: NAFCILLIN 2 GM in DEXTROSE 5% 100 ML IV SCH ×2 (01:10→05:09)
[2020-12-16] MEDS: hydrALAzine 20 MG/ML, 1ML IVPush PRN (01:10)
[2020-12-16] MEDS: HYDROmorphone 1 MG/ML, 1ML INJ IVPush PRN ×2 (02:08→06:32)
[2020-12-16] MEDS: OXYcodone IR 5MG TABLET PO PRN ×5 (04:18→21:41)
[2020-12-16 04:44] LABS: BASOPHILS % (AUTO) 1 % (0-1); EOSINOPHILS % (AUTO) 6 % (1-7); LYMPHOCYTES % (AUTO) 18 % (22-44); MEAN CORPUSCULAR HEMOGLOBIN 30.3 pg (27.5-34.5); MEAN CORPUSCULAR HGB CONC 33.5 g/dL (33.2-36.2); MEAN PLATELET VOLUME 7.1 fL (7.4-10.4); MONOCYTES % (AUTO) 9 % (2-9); NEUTROPHILS % (AUTO) 67 % (42-75); PLATELET COUNT 507 x10^3/uL (130-400); RED CELL DISTRIBUTION WIDTH 14.8 % (9.4-14.8)
[2020-12-16 04:54] LABS: ALBUMIN 3.5 g/dL (3.4-5.0); ANION GAP 6 mmol/L (5-15); CALCIUM 9.7 mg/dL (8.5-10.1); CHLORIDE 107 mmol/L (98-107)
[2020-12-16 04:57] LABS: ALANINE AMINOTRANSFERASE 32 U/L (12-78); ALKALINE PHOSPHATASE 84 U/L (45-117); BILIRUBIN,TOTAL 0.5 mg/dL (0.2-1.0); CREATININE 0.75 mg/dL (0.7-1.3); TOTAL PROTEIN 7.9 g/dL (6.4-8.2)
[2020-12-16 05:54] LABS: MD SCAN
[2020-12-16] MEDS ORDERED: LIDOCAINE JELLY 2%, 30GM TP ONE (07:30)
[2020-12-16] MEDS ORDERED: LIDOCAINE-MPF 1%, 2ML ONE (07:47)
[2020-12-16] MEDS ORDERED: LIDOCAINE 1%, 2ML INFIL ONE (08:00)
[2020-12-16] MEDS: METHADONE 10 MG TABLET PO SCH ×2 (09:17→20:37)
[2020-12-16] MEDS: LACTOBACILLUS CHEW TABLET PO SCH ×3 (09:18→20:37)
[2020-12-16] MEDS: ERTAPENEM 1 GM in SODIUM CHLORIDE 0.9% 50 ML IV SCH (09:19)
[2020-12-16] MEDS: ENOXAPARIN 40 MG/0.4 ML SQ SCH (09:20)
[2020-12-16] MEDS: SODIUM CHLORIDE FLUSH 10ML SYR IVF SCH ×2 (09:20→20:38)
[2020-12-16] MEDS: METHOCARBAMOL 750 MG TABLET PO PRN ×2 (10:44→17:19)
[2020-12-16 13:38] VITALS: BP 153/94
[2020-12-16] MEDS: BUTALB/APAP/CAFFEINE 50MG/325MG/40MG PO PRN (18:35)
[2020-12-16 19:57] VITALS: BP 148/93
[2020-12-16] MEDS: NICOTINE 14MG/24 HR PATCH.TD24 TD SCH (20:37)
[2020-12-16] MEDS: LORazepam 1MG TABLET PO PRN (21:41)
[2020-12-17 02:00] VITALS: BP 145/92
[2020-12-17] MEDS: METHOCARBAMOL 750 MG TABLET PO PRN (02:20)
[2020-12-17] MEDS: OXYcodone IR 5MG TABLET PO PRN ×3 (02:20→11:11)
[2020-12-17 04:06] LABS: BASOPHILS % (AUTO) 1 % (0-1); EOSINOPHILS % (AUTO) 7 % (1-7); LYMPHOCYTES % (AUTO) 19 % (22-44); MEAN CORPUSCULAR HEMOGLOBIN 30.3 pg (27.5-34.5); MEAN CORPUSCULAR HGB CONC 33.7 g/dL (33.2-36.2); MEAN PLATELET VOLUME 7.2 fL (7.4-10.4); MONOCYTES % (AUTO) 10 % (2-9); NEUTROPHILS % (AUTO) 62 % (42-75); PLATELET COUNT 479 x10^3/uL (130-400); RED BLOOD COUNT 4.55 x10^6/uL (4.38-5.82); RED CELL DISTRIBUTION WIDTH 14.6 % (9.4-14.8)
[2020-12-17 04:10] LABS: ANION GAP 6 mmol/L (5-15); CALCIUM 9.3 mg/dL (8.5-10.1); CHLORIDE 110 mmol/L (98-107); CREATININE 0.71 mg/dL (0.7-1.3)
[2020-12-17 04:17] LABS: MD NO
[2020-12-17] MEDS: NICOTINE GUM 4 MG BC PRN (06:07)
[2020-12-17 07:47] VITALS: BP 166/95
[2020-12-17] MEDS: ERTAPENEM 1 GM in SODIUM CHLORIDE 0.9% 50 ML IV SCH (08:47)
[2020-12-17] MEDS: METHADONE 10 MG TABLET PO SCH (08:48)
[2020-12-17] MEDS: LACTOBACILLUS CHEW TABLET PO SCH (08:48)
[2020-12-17] MEDS: ENOXAPARIN 40 MG/0.4 ML SQ SCH (08:48)
[2020-12-17] MEDS: SODIUM CHLORIDE FLUSH 10ML SYR IVF SCH (08:49)
[2020-12-17 08:53] VITALS: BP 137/87
[2020-12-17] MEDS ORDERED: ACID1TAB7 PO (13:11)
[2020-12-17] MEDS ORDERED: OXAC10VI IV (13:46)
== END 2020-12-17 14:19 | disposition home or self-care (01) | DRG 857 ==
LOC: ED 03:15 → EDIP 03:21 → ED 03:33 → 3N 04:25 → 4NE 12-03 18:59 → CCU 12-11 15:32 → 3N 12-16 14:31
PROVIDERS: ADMIT Internal Medicine; ATTEND Internal Medicine
PROC: 01NR0ZZ Release Sacral Nerve, Open Approach (ICD-10-PCS; 2020-12-03)
PROC: 01NB0ZZ Release Lumbar Nerve, Open Approach (ICD-10-PCS; principal; 2020-12-03 17:30)
PROC: 02HV33Z Insertion of Infusion Device into Superior Vena Cava, Percutaneous Approach (ICD-10-PCS; 2020-12-05)
PROC: B5181ZA Fluoroscopy of Superior Vena Cava using Low Osmolar Contrast, Guidance (ICD-10-PCS; 2020-12-05)
PROC: B548ZZA Ultrasonography of Superior Vena Cava, Guidance (ICD-10-PCS; 2020-12-05)
PROC: 009U3ZX Drainage of Spinal Canal, Percutaneous Approach, Diagnostic (ICD-10-PCS; 2020-12-11)
PROC: B01B1ZZ Fluoroscopy of Spinal Cord using Low Osmolar Contrast (ICD-10-PCS; 2020-12-11)
DX: T81.41XA Infection following a procedure, superficial incisional surgical site, initial encounter (principal); L02.212 Cutaneous abscess of back [any part, except buttock and flank]; F11.20 Opioid dependence, uncomplicated; L03.312 Cellulitis of back [any part except buttock and flank]; R73.03 Prediabetes; Z20.822 Contact with and (suspected) exposure to COVID-19; K21.9 Gastro-esophageal reflux disease without esophagitis; I10 Essential (primary) hypertension; F17.200 Nicotine dependence, unspecified, uncomplicated; G43.909 Migraine, unspecified, not intractable, without status migrainosus; G89.29 Other chronic pain; E88.09 Other disorders of plasma-protein metabolism, not elsewhere classified; M51.16 Intervertebral disc disorders with radiculopathy, lumbar region; M48.061 Spinal stenosis, lumbar region without neurogenic claudication; B95.61 Methicillin susceptible Staphylococcus aureus infection as the cause of diseases classified elsewhere; D63.8 Anemia in other chronic diseases classified elsewhere; E66.9 Obesity, unspecified; E78.00 Pure hypercholesterolemia, unspecified; E78.5 Hyperlipidemia, unspecified; R73.9 Hyperglycemia, unspecified; Y83.8 Other surgical procedures as the cause of abnormal reaction of the patient, or of later complication, without mention of misadventure at the time of the procedure; Z88.8 Allergy status to other drugs, medicaments and biological substances; Z90.49 Acquired absence of other specified parts of digestive tract; Z79.899 Other long term (current) drug therapy; Z68.28 Body mass index [BMI] 28.0-28.9, adult
CPT/HCPCS: 36415; 96374; 96375; 99285; J3490; S0020; 36573; 62327; 62329; 72158; 80048; 80053; 80202; 82040; 82550; 83036; 83735; 84100; 85025; 85610; 85651; 86140; 87040; 87070; 87075; 87077; 87081; 87147; 87186; 87205; 87635; 93306; 99156; 99157; C1729; G0378; J0171; J0690; J0878; J1100; J1170; J1335; J1650; J1885; J2175; J2250; J2405; J2543; J2550; J2704; J3010; J3360; J3370; J3480; Q0162; A9575; C1751; C1781; J0330; J0360; J2270; J2310; J2800; J7030; J7040; J7050; J7120